=== PATIENT | female | born 1995 | race Caucasian/White ===

== ENCOUNTER 2017-04-01 16:28 | Emergency (ER) | payer OTHER ==
[~2017-04-01] VITALS: Ht 172.7 cm; Wt 86.4 kg
[2017-04-01 16:57] VITALS: BP 122/74; PULSE 70; RESP 16; O2SAT 100
--- NOTE | 2017-04-01 17:41 | ED.REPORT ---
HPI-Preg Under 20 Weeks Date of Service Apr 01, 2017 ED Provider: Nadine Gregory History of Present Illness: found out yesterday she is . cramping has been ongoing for a while about 2 to 3 weeks. Natanael in [place] is primary care. LMP maybe a month ago, first . Nursing Notes Stated Complaint: WITH CRAMPS Chief Complaint: General Complaint Nursing Notes Reviewed: Yes Allergies: Coded Allergies: No Known Allergies (Unverified Allergy, Unknown, 04/01/17) General Time Seen by Provider: 17:39 Chief Complaint Abdominal pain Hx Obtained From: Patient Onset Occurred: More than a week ago... (3 weeks) Past Medical History Past Medical History Denies: Asthma, Diabetes mellitus Past Surgical History Reports: Appendectomy (at 13 years old) Smoking History Former Smoker (quit 1 year ago) Social History Alcohol Use: "Social" Drug Use: THC Occupation lives with boyfriend, work at [employer], a [employer] 04/01/2017 Ambulatory Status Independent Review of Systems Basic Review of Systems ENT: Hearing NL, No pain, No nasal congestion, No pharyngeal pain Psychiatric: Normal thought content Physical Exam Initial Vital Signs Vital Signs (First) Date Time Temp Pulse Resp B/P Pulse Ox O2 Delivery O2 Flow Rate FiO2 04/01/17 16:57 36.8 70 16 122/74 100 Room Air Initial VS: Reviewed, Vital signs normal Head / Eyes: Atraumatic, Normocephalic, PERRL ENT: Mucous membranes moist, Conjunctiva normal, No scleral icterus Neck: Supple, Non-tender, Full range of motion Respiratory: Breath sounds normal, Clear to auscultation, No respiratory distress Cardiovascular: Regular rate & rhythm, Heart sounds normal, Intact distal pulses Back: No CVA tenderness Lymphatic: No lymphadenopathy Extremities: Vascular intact, Neuro intact, No swelling, No tenderness Skin: Warm, Dry, No cyanosis Neurologic: Alert, Oriented, Nonfocal Psychiatric: Mood/affect normal, Behavior normal, Normal thought content General/Constitutional: Awake, Alert, No acute distress, Well appearing, Well developed, Well hydrated, Well nourished, Cooperative, Not toxic appearing Abdomen: Atraumatic, Soft, Non-tender, McBurney's non-tender Female Genitourinary: Exam deferred Respiratory / Chest: Atraumatic, Breath sounds NL, Breath sounds = bilat, No respiratory distress Cardiovascular: Heart rate NL, Regular rhythm, Heart sounds NL, No gallop Interpretation & Diagnostics Lab Results Interpretation Result Diagram: 04/01/17 1809 04/01/17 1809 Test 04/01/17 18:09 White Blood Count 9.5th/mm3 (3.8-10.1) Red Blood Count 4.68mil/mm3 (3.90-5.20) Hemoglobin 13.7g/dL (12.0-15.6) Hematocrit 41.1% (35.0-46.0) Mean Corpuscular Volume 87.8fL (81-100) Mean Corpuscular Hemoglobin 29.3pg (27.0-35.0) Mean Corpuscular Hemoglobin Concent 33.3% (32.0-37.0) Red Cell Distribution Width 12.7% (12.3-15.4) Platelet Count 252bil/L (150-400) Neutrophils (%) (Auto) 69.4% (40-74) Lymphocytes (%) (Auto) 19.8% (14-46) Monocytes (%) (Auto) 7.6% (4-12) Eosinophils (%) (Auto) 2.3% (0-5) Basophils (%) (Auto) 0.4% (0-3) Sodium Level 138mEq/L (134-144) Potassium Level 4.2mEq/L (3.5-5.2) Chloride Level 101mEq/L (97-108) Carbon Dioxide Level 21mmol/L (18-29) Blood Urea Nitrogen 11mg/dL (6-20) Creatinine 0.68mg/dL (0.57-1.00) Estimat Glomerular Filtration Rate 158mL/min (>59) Glucose Level 88mg/dL (60-99) Calcium Level 8.9mg/dL (8.5-10.1) Total Bilirubin 0.4mg/dL (0.0-1.2) Aspartate Amino Transf (AST/SGOT) 17U/L (0-50) Alanine Aminotransferase (ALT/SGPT) 22U/L (0-32) Alkaline Phosphatase 43U/L (25-150) Total Protein 7.5g/dL (6.4-8.4) Albumin 4.7g/dL (3.4-5.0) HCG Beta Subunit 819.1mIU/mL Hold Chaidez Top Tube Received (Received) US Focused OB PROCEDURE: US OB<14 WKS INDICATIONS: cramping OUTSIDE/PRIOR DATING DATA: Last menstrual period (LMP): Not known. LMP-based estimated date of delivery (NICOLE): Not applicable. First dating scan (date and location): 04/01/17. Estimated date of delivery (NICOLE) from first dating scan: 12/01/17. TECHNIQUE: Real-time scanning was performed of the fetus and maternal pelvic organs, with image documentation. COMPARISON: None. FINDINGS: Embryo: Anechoic focus noted in the uterus may represent early gestational sac. No pole identified. Mean gestational sac diameter of 3.6 cm corresponding to an age of 5 weeks 1 day. No yolk sac is identified. No heart tones identified. Measurement variability in dating: +/- 4 weeks by LMP, +/- 7 days by mean sac diameter (use before 6 weeks gestation if crown-rump length not able to be measured), +/- 5 days by crown-rump length (up to 8 weeks 6 days gestation), +/- 7 days by crown-rump length (up to 13 weeks 6 days gestation). Maternal organs: Corpus luteal cyst noted in the left adnexa. Right adnexa sonographically normal. Limited images through the kidneys demonstrate no hydronephrosis. IMPRESSION: Possible early intrauterine with ultrasound estimated age of 5 weeks 1 day corresponding to ultrasound NICOLE of 12/01/17. Please note no pole or yolk sac is identified and pseudo-gestational sac cannot be completely excluded. Recommend close clinical observation, serial beta hCG and followup ultrasound for further evaluation. Re-Eval/Medical Decision Med Decision/Clinical Course 21 year old female with 1 day hx of positive and 3 weeks of symptoms. RH positive, labs are normal. Urine is negative. US shows possible early . No sign of etopic Discharge & Departure Primary Impression: Weeks of gestation: unspecified Qualified Code: Z33.1 - state, incidental Additional Impression: Abdominal cramping Disposition: Home Patient Instructions: (ED), Diet (GEN) Additional Instructions: The ultrasound shows that you are 5 weeks 1 day. It is too early to see the pole or have a heart beat. Your urine is good, no sign of infection. Your labs are normal. The urine does not show any sign of infection. Your HCG is at 819. You are RH positive. Please follow with [facility]. Start vitamins Referrals: Manuel Santoyo MD (PCP) Kanu Jurado MD EDSupervising Provider for APC: Kiel Diaz MD Attending Statement Attending attestation: I saw this patient in conjunction with Nadine MARION. I agree with the workup, evaluation, treatment and disposition. Kiel Diaz MD copies to: Kanu Jurado MD, Sue ARNP Apr 01, 2017 17:41 Kiel Diaz MD Apr 01, 2017 18:12
[2017-04-01 18:14] LABS: BASOPHILS % (AUTO) 0.4 % (0-3); EOSINOPHILS % (AUTO) 2.3 % (0-5); MONOCYTES % (AUTO) 7.6 % (4-12); Mean Corpuscular Hemoglobin 29.3 pg (27.0-35.0); Mean Corpuscular Volume 87.8 fL (81-100); NEUTROPHILS % (AUTO) 69.4 % (40-74); Platelet Count 252 bil/L (150-400)
[2017-04-01 18:55] VITALS: BP 128/66; PULSE 76; RESP 15; O2SAT 100
[2017-04-01 19:03] VITALS: BP 128/66; PULSE 78; RESP 15; O2SAT 100
--- NOTE | 2017-04-01 19:20 | DRSVH ---
PROCEDURE: US OB<14 WKS INDICATIONS: cramping OUTSIDE/PRIOR DATING DATA: Last menstrual period (LMP): Not known. LMP-based estimated date of delivery (NICOLE): Not applicable. First dating scan (date and location): 04/01/17. Estimated date of delivery (NICOLE) from first dating scan: 12/01/17. TECHNIQUE: Real-time scanning was performed of the fetus and maternal pelvic organs, with image documentation. COMPARISON: None. FINDINGS: Embryo: Anechoic focus noted in the uterus may represent early gestational sac. No pole ident ified. Mean gestational sac diameter of 3.6 cm corresponding to an age of 5 weeks 1 day. No yolk sa c is identified. No heart tones identified. Measurement variability in dating: +/- 4 weeks by LMP, +/- 7 days by mean sac diameter (use before 6 weeks gestation if crown-rump length not able to be measured), +/- 5 days by crown-rump length (up t o 8 weeks 6 days gestation), +/- 7 days by crown-rump length (up to 13 weeks 6 days gestation). Maternal organs: Corpus luteal cyst noted in the left adnexa. Right adnexa sonographically normal. Limited images through the kidneys demonstrate no hydronephrosis. IMPRESSION: Possible early intrauterine with ultrasound estimated age of 5 weeks 1 day cor responding to ultrasound NICOLE of 12/01/17. Please note no pole or yolk sac is identified and pse udo-gestational sac cannot be completely excluded. Recommend close clinical observation, serial beta hCG and followup ultrasound for further evaluation. Dictated by: Lauryn Oneill MD, PhD on 04/01/2017 at 19:15 Approved by: Lauryn Oneill MD, PhD on 04/01/2017 at 19:19
== END 2017-04-01 18:50 | disposition home or self-care (01) ==
LOC: SED 16:28
DX: O26.899 Other specified pregnancy related conditions, unspecified trimester (principal); Z3A.00 Weeks of gestation of pregnancy not specified; Z87.891 Personal history of nicotine dependence